=== PATIENT | female | born 1975 | race Caucasian/White ===

== ENCOUNTER 2016-12-23 19:26 | Emergency (ER) | payer OTHER | END 2016-12-23 22:09 | disposition home or self-care (01) | LOC: ER 19:26 | DX: N10 Acute pyelonephritis (principal); K02.9 Dental caries, unspecified; M79.605 Pain in left leg; M79.604 Pain in right leg; G43.909 Migraine, unspecified, not intractable, without status migrainosus; F17.210 Nicotine dependence, cigarettes, uncomplicated; Z88.0 Allergy status to penicillin; Z88.1 Allergy status to other antibiotic agents; Z88.2 Allergy status to sulfonamides; Z88.5 Allergy status to narcotic agent; Z88.6 Allergy status to analgesic agent; Z91.040 Latex allergy status; Z88.8 Allergy status to other drugs, medicaments and biological substances | CPT/HCPCS: 36415; 96361; 96374 ==